=== PATIENT | male | born 1955 | race Caucasian/White ===

== ENCOUNTER → 2016-12-10 19:15 | Emergency (ER) | payer MEDICARE, OTHER ==
[2016-12-10 16:09] LABS: INTERNATIONAL NORMAL RATI 1.1 UNITS (-); PARTIAL THROMBO TIME 24.4 SEC (22.5-37.2); PROTIME (NOT ORD) 14.3 SEC (12.0-14.5)
[2016-12-10 16:14] LABS: ALBUMIN 2.8 G/DL (3.5-5.0); ALKALINE PHOSPHATASE 234 U/L (45-117); BUN (BLOOD UREA NITROGEN) 22 MG/DL (6-23); CHEST PAIN PROFILE TAT 0 Hrs 20 Mins; CHLORIDE, SERUM 102 MMOL/L (96-112); CO2 (CARBON DIOXIDE) 32 MMOL/L (24-34); CREATININE 1.11 MG/DL (0.70-1.30); DIRECT BILIRUBIN 0.3 MG/DL (0.0-0.4); GFR AFRICAN AMERICAN 83 ML/MIN (>=60); GFR NON AFRICAN AMERICAN 71 ML/MIN (>=60); GLUCOSE, SERUM 257 MG/DL (60-99); INDIRECT BILIRUBIN(NOT ORDER) 0.4 MG/DL (0.1-0.9); POTASSIUM, SERUM 4.4 MMOL/L (3.5-5.3); SGOT(AST) 57 U/L (5-40); SGPT(ALT) 101 U/L (5-65); SODIUM, SERUM 141 MMOL/L (135-148); TOTAL BILIRUBIN 0.7 MG/DL (0-1.2); TOTAL PROTEIN 5.9 G/DL (6.0-8.5); TROPONIN I <0.02 NG/ML (<0.05)
[2016-12-10 16:21] LABS: BASOPHILS 0 %; EOSINOPHILS 0 %; ER CBC TAT 0 Hrs 01 Mins; HEMATOCRIT 39.8 % (40.0-51.0); IMMATURE GRANULOCYTES 1.1 %; IMMATURE GRANULOCYTES ABSOLUTE 0.11 10/3/uL (0.0-0.11); LYMPHOCYTES 9.3 %; LYMPHOCYTES ABSOLUTE 0.96 10/3/uL (0.67-4.30); MEAN CORPUS HGB CONC 32.7 g/dL (32.0-36.0); MEAN CORPUSCULAR HEMOGLOB 29.1 pg (26.0-34.0); MEAN PLATELET VOLUME 10.8 fL (9.2-13.0); MONOCYTES 3.2 %; MONOCYTES ABSOLUTE 0.33 10/3/uL (0.21-1.20); NEUTROPHILS 86.4 %; NEUTROPHILS ABSOLUTE 8.92 10/3/uL (2.02-8.40); NUCLEATED RED BLOOD CELLS 0.2 /100WBC (0-0); PLATELET COUNT 100 10/3/uL (150-400); RBC DISTRIBUTION WIDTH 16.7 % (12.0-16.0); RED CELL COUNT 4.47 10/6/uL (4.7-6.1); WHITE BLOOD CELLS 10.3 10/3/uL (4.5-10.5)
[2016-12-10 16:23] LABS: MANUAL DIFF NO %
[~2016-12-10 19:15] MED LIST: ACET500CAP PO; ASA5GR PO; ASAB PO; ASTELIN NAS; ASTEPRO0.15 % NAS; BACDS PO; BENTYL10 PO; BRIMONIDINE0.2 % OPH; CELLCEPT5 PO; CIP2 PO; CLOTRIM/BETA TOP; COSOPT OPH; DEMA20 PO; GLUCOPHAGE1000 MG PO; GLUCOTRO10 PO; GLUCPH PO; GLUCXL10 PO; HALF81 PO; IMDUR30 PO; KDUR20 PO; L20 PO; LEVBID PO; LEVEMFLXPN SC; LEVEMIR SC; LEVSINTAB PO; LORTAB PO; MAGOX4 PO; MERREM1 GM IV; MOBIC15 MG PO; MONODOX100 MG PO; NICODERM C21 MG/241 TOP; NITROSTAT0.4 MG SL; NIZORALCRM TOP; NORCO1 TA1 PO; NORCO1 TA2 PO; NOVOLOG SC; NOVOPEN SC; NTG150 SL; P10 PO; P20 PO; PLAVIX PO; PRAVACHOL40 MG PO; PRILO PO; PYRID180 PO; PYRID60 PO; REG5 PO; SPIRO25 PO; TRESIBA FL200 UNIT/1 SC; TRESIBA SC; ULTRAM50 PO; URSO FORTE500 MG PO; VASOTEC10 PO; VASOTEC20 MG PO; VASOTEC5 PO; XALAT OPH; ZYRTEC ALLGY10 MG PO; ZYVOXPO PO
== END | disposition home or self-care (01) ==
LOC: ER 19:15
PROVIDERS: Emergency Medicine
DX: R60.0 Localized edema (principal); Z88.8 Allergy status to other drugs, medicaments and biological substances; Z79.82 Long term (current) use of aspirin; Z79.899 Other long term (current) drug therapy; Z79.4 Long term (current) use of insulin; Z79.52 Long term (current) use of systemic steroids
CPT/HCPCS: 71020; 80048; 80076; 83735; 83880; 84484; 85025; 85610; 85730; 93288; 96374; 99285

== ENCOUNTER 2017-03-31 14:46 | Inpatient (IN) | payer MEDICARE, OTHER ==
--- NOTE | ~2017-03-31 | IDS ---
Interim Discharge Summary [facility] [address] [place]. [address] NAME: GHULAM CHING : 55 STATUS : ADM IN PAT#: [id number] AGE: 61 ADM/REG DATE : 03/31/17 MR#: [id number] REPORT SERV DATE: 04/06/17 DICTATED BY: TIP BARKER DATE: 04/05/17 REPORT STATUS : Draft TRANSCRIBED BY: MODL DATE: 04/05/17 ADMISSION DATE: 03/31/2017 DISCHARGE DATE: DATE OF INTERIM SUMMARY: 04/03/2017. INTERIM DIAGNOSES: 1. Gangrenous toe, right foot second toe. 2. Peripheral arterial disease. 3. Deep vein thrombosis. 4. Diabetes type 2. 5. Non-alcoholic steatohepatitis history. 6. Myasthenia gravis history. 7. Ringworm, present on arrival. 8. Left arm hematoma. CONSULTATIONS: 1. ID. 2. Podiatry, Dr. Covington. 3. Dr. Khan, Vascular. WOUND CULTURES: Staph species. ALVINA prep, yeast positive. Additional wound culture, sparse growth of E. coli. DIAGNOSTIC DATA: Doppler ultrasound of upper extremities suspect mild arterial occlusive disease proximal subclavian artery with biphasic flow seen in the left upper extremity and distal to subclavian artery. Venous Doppler of extremities, no left upper extremity venous noted. Digit evaluation appears to be small vessel disease in the right foot with diminished waveforms in the first, third, fourth, and fifth digits of the right foot. A definite waveform is identified in the second digit. The right toe brachial index is diminished at 0.51. There also appears to be small vascular disease in the left foot with diminished waveforms in the first and fifth digits. No definitive waveforms identified in the second and third digits of the left foot. A normal waveform is seen in the fourth digit of the left foot, and left toe brachial index is mildly diminished at 0.57. Venous Doppler of extremities bilaterally, acute appearing nonocclusive deep vein thrombosis of right popliteal vein. No other thrombus identified. No left extremity venous thrombus demonstrated. Followup Doppler, no propagation of clot in the right popliteal vein. Duplex consistent with obey-rk-xmkwvswt fem-pop arterial disease on the right with monophasic flow in the distal posterior tibial artery. Distal anterior tibial artery has biphasic flow on the right with a right toe brachial index at 0.51. Additionally, findings compatible with isolated infrapopliteal disease on the left involving posterior tibial disease, which has monophasic flow and anterior tibial artery remains triphasic flow in the ankle on the left. Left toe brachial index was mildly diminished at 0.57. Isolated mild arterial occlusive disease involving deep femoral arteries bilaterally, both of which have biphasic flow. No ankle-brachial index were obtained due to the patient's DVT demonstrated on venous Doppler ultrasound performed prior to the study. Foot no osseus destruction and no acute Interim Discharge Summary [place] [id number] [facility]. [address] NAME: GHULAM CHING : 55 STATUS : ADM IN PAT#: [id number] AGE: 61 ADM/REG DATE : 03/31/17 MR#: [id number] REPORT SERV DATE: 04/06/17 DICTATED BY: TIP BARKER DATE: 04/05/17 REPORT STATUS : Draft TRANSCRIBED BY: MODL DATE: 04/05/17 abnormality. Additionally, initial radiology of right foot second toe ulcer with definitive evidence of osteomyelitis with extensive calcified atherosclerotic disease. No fractures or lytic lesions. HOSPITAL COURSE: Please see H and P for complete details. HISTORY OF PRESENT ILLNESS: Briefly, Mr. Ching is a very pleasant 61-year-old male with history of diabetes, NEVAREZ cirrhosis, and myasthenia gravis, who presents with right toe infection with progressive pain, noted to have gangrenous changes on right toe. A vascular workup showed peripheral arterial disease, DVT in right extremity. Additionally, he has had evaluation by Dr. Covington, Podiatry and Infectious Disease. Did have surgical debridement at bedside, however, due to vascular disease, Dr. Khan has been consulted as the patient will require further debridement likely intraoperatively and will need optimization prior to this. Recently, the patient was also treated for a new DVT found, however, the patient had significant amount of hematoma noted in the left arm after only 350 mL administration of heparin drip rate for DVT without bolus. Noted significant swelling in the left arm with hematoma. Since then, heparin drip has been held due to risks, benefits, and possible supratherapeutic treatment as patient within only a short amount of time had been supratherapeutic on PTT and had bleeding risk. We will defer to Dr. Khan currently for further evaluation and when to restart appropriate anticoagulation due to risk-benefit ratio. Care will be resumed by Medicine team in the a.m. ZULY/WILL Tip Barker MD / [id number] CC: Tip Barker MD
--- NOTE | ~2017-03-31 | HP ---
History And Physical [place] [address] [place]. [address] NAME: GHULAM CHING : 55 STATUS : ADM IN [facility]#: [id number] AGE: 61 ADM/REG DATE : 03/31/17 MR#: [id number] REPORT SERV DATE: 04/01/17 DICTATED BY: TIP BARKER DATE: 04/01/17 REPORT STATUS : Draft TRANSCRIBED BY: MODL DATE: 04/01/17 DATE OF ADMISSION: 03/31/2017 CHIEF COMPLAINT: Right toe infection. HISTORY OF PRESENT ILLNESS: The patient is a 61-year-old male with past medical history of sleep apnea, hypertension, hyperlipidemia, reflux, NEVAREZ cirrhosis, type 2 diabetes who presents after having right second toe erythema. The patient reports symptoms have been going on for a few days, but happened fairly suddenly, but constant, difficulty walking on the foot, and has been moderate severity with sharp-type pain radiating up the leg at times and has had redness that is also radiating. Occasional nausea, but no fevers. Has had redness, swelling at site. No shortness of breath, chest pain, diarrhea, or palpitations. Symptoms worsened with ambulating on foot, relieved by rest and elevation. Also noted black spot on the bottom of foot which he thought was a callus or a clot. Symptoms still currently present, reproducible. REVIEW OF SYSTEMS: A 10-point review of systems negative except for that noted in the HPI. PAST MEDICAL HISTORY: Myasthenia gravis, diabetes, coronary artery disease, NEVAREZ cirrhosis, IRASEMA, gastric polyps, thoracic AAA, nephrolithiasis, cholecystitis, reflux, hyperlipidemia, hypertension. SURGICAL HISTORY: Right shoulder pilonidal cyst. ALLERGIES: BETA KRUPA. SOCIAL HISTORY: No smoking. Does have chewing tobacco. From [place]. No illicits. FAMILY HISTORY: Heart disease. No blood clots. CURRENT MEDICATIONS: Aspirin, Astelin, Clotrim/beta cream, , Bentyl, Cosopt, Asher, NovoLog, Tresiba, Nizoral, Dilantin, Prilosec, Deltasone, Aldactone, Demadex, Billy. PHYSICAL EXAMINATION: VITAL SIGNS: Patient's blood pressure 114/70, temperature 98.5, pulse 84, respirations 16, and O2 saturations 97% on room air. GENERAL: No acute distress. Calm, pleasant, slightly older than stated age. EYES: No scleral icterus. EOMI. ENT: Poor dentition with smokeless tobacco in mouth. RESPIRATORY: Clear to auscultation. No wheezes. CV: Regular rate. Does have warm extremities. Cap refill less than two seconds. GI: Soft, nontender, but central obesity. : Deferred. MUSCULOSKELETAL: Right second digit with necrotic base, but pulses still palpable bilateral History And Physical [address] [address] NAME: GHULAM CHING : 55 STATUS : ADM IN [facility]#: [id number] AGE: 61 ADM/REG DATE : 03/31/17 MR#: [id number] REPORT SERV DATE: 04/01/17 DICTATED BY: TIP BARKER DATE: 04/01/17 REPORT STATUS : Draft TRANSCRIBED BY: MODKalyan DATE: 04/01/17 lower extremities. Does have, what appears to be, circular lesions possible consistent with tinea on bilateral lower extremities. SKIN: Warm, dry with erythema and tinea type changes. LYMPH: No cervical lymphadenopathy. HEME: No bleeding or bruising. NEURO: Alert and oriented. Moves all extremities. PSYCH: Appropriate mood and affect. LABS: CMP: Procalcitonin 0.27, BUN and creatinine 30 and 1.28, potassium 4.5, sodium 142, T bilirubin 1.4, AST and ALT 71 and 84, alkaline phosphatase 176. Culture still pending. WBC 12.3, H and H are 12.8 and 37.9, platelets 118. Right foot portable second toe ulcer without definite evidence of osteomyelitis. No fractures, lytic, extensive calcification. ASSESSMENT AND PLAN: 1. Gangrenous right foot ulcer, second digit. 2. Diabetes. 3. Nonalcoholic steatohepatitis. 4. Myasthenia gravis. 5. Ringworm. 6. Immunosuppression status. PLAN: 1. For gangrenous right foot toe. Vancomycin, Zosyn for ulcer type formation and diabetes. Podiatry consult. Check arterial Dopplers. ID as patient requesting, also seen by Dr. Vicente in the past. Patient additionally appears to have somewhat complex ulcerative foot and has been supportively recently treated for a ringworm in the setting of NEVAREZ cirrhosis, myasthenia gravis, immunosuppression status, and diabetic. Immunosuppression status from chronic steroid. We will ask ID evaluation. Additionally, will have Podiatry. Depending on arterial Dopplers, we will await for these results and Vascular may be required. 2. Diabetes. Sliding scale insulin Levemir. 3. NEVAREZ, elevated LFTs with mild thrombocytopenia, monitor. 4. Myasthenia gravis, on prednisone. Does not recall still being on CellCept anymore. 5. Ringworm, consult ID with comorbidities of NEVAREZ, myasthenia, diabetic foot, and chronic immunosuppression status with chronic prednisone. Hold topical cream until seen by ID. 6. Immunosuppression status secondary to chronic steroids for myasthenia. DDN/MODL Tip Barker MD / [id number]
--- NOTE | ~2017-03-31 | OP ---
Record Of Operation [facility] [address] [place]. [address] NAME: GHULAM CHING : 55 STATUS : ADM IN PAT#: [id number] AGE: 61 ADM/REG DATE : 03/31/17 MR#: [id number] REPORT SERV DATE: 04/09/17 DICTATED BY: RAPHAEL KHAN DATE: 04/08/17 REPORT STATUS : Draft TRANSCRIBED BY: MODL DATE: 04/08/17 DATE OF PROCEDURE: 04/08/2017 PREPROCEDURE DIAGNOSES: 1. Gangrene, right 2nd toe. 2. Critical limb ischemia with arterial insufficiency, Payette category 5. POSTOPERATIVE DIAGNOSIS: High-grade distal anterior tibial artery and dorsal pedal artery near occlusion. PROCEDURE PERFORMED: 1. Antegrade right SFA catheterization with angiography. 2. Selective catheterization of the right popliteal artery, anterior tibial artery, and dorsal pedal artery with direct arteriography. 3. Atherectomy of dorsal pedal artery and anterior tibial artery with a CSI 1.25 M catheter with secondary angioplasty 2 x 150 balloon. ANESTHESIA: Local/MAC. COMPLICATIONS: None. INDICATION FOR PROCEDURE: Secondary to this very pleasant 61-year-old gentleman being evaluated for critical limb ischemia, Dr. Lange performed amputation of the right 2nd toe prior to the angiogram. Please see his note for complete information. Recommendations were made to Mr. Ching prior to surgery for angiogram for reconstruction. Consent was given. DETAILS OF PROCEDURE: The patient was brought to the endovascular operating room, placed in supine position, prepped and draped in routine sterile fashion with attention to the right leg. The right SFA was then catheterized with a micropuncture needle followed by a wire and a sheath. Arteriogram demonstrated widely patent proximal, mid, and distal SFA, and proximal and distal popliteal. Catheter was advanced down the popliteal. Arteriogram demonstrated very sluggish flow into the pedal vasculature secondary to outflow obstruction. The anterior tibial artery was then catheterized with a TrailBlazer catheter and arteriogram demonstrated patent anterior tibial artery proximal and mid, but distal had evidence of obstruction and the dorsal pedal artery had evidence of a near occlusion with patent arch vessels beyond this. A wire was then passed across this. A 014 TrailBlazer catheter was advanced into the dorsal pedal artery. Arteriogram demonstrated wide patency distally. A Viper wire was then placed and maintained and then atherectomy was then performed of the anterior tibial artery and dorsal pedal artery with CSI 1.25 M catheter in standard technique. Angioplasty was then performed with a 2.0 x 150 mm balloon in the dorsal pedal artery and anterior tibial artery, proximal and mid segments. Completion imaging showed wide patency of the anterior tibial artery and dorsal pedal artery with good flow into the forefoot. At this point, wires, catheters, and sheaths were then removed. The right groin was then closed with an Angio-Seal. The patient tolerated the procedure well. Record Of Operation [facility] [address] [facility] [place]. [address] NAME: GHULAM CHING : 55 STATUS : ADM IN [facility]#: [id number] AGE: 61 ADM/REG DATE : 03/31/17 MR#: [id number] REPORT SERV DATE: 04/09/17 DICTATED BY: RAPHAEL KHAN DATE: 04/08/17 REPORT STATUS : Draft TRANSCRIBED BY: WILL DATE: 04/08/17 CL/WILL Raphael Khan M.D. / [id number] CC: MD Clinton Alfredo M.D.
--- NOTE | ~2017-03-31 | DS ---
Discharge Summary [place] [address] [place]. [address] NAME: HGULAM CHING : 55 STATUS : DIS IN PAT#: [id number] AGE: 61 ADM/REG DATE : 03/31/17 MR#: [id number] REPORT SERV DATE: 04/12/17 DICTATED BY: DATE: REPORT STATUS : Draft TRANSCRIBED BY: MODL DATE: 04/11/17 ADMISSION DATE: 03/31/2017 DISCHARGE DATE: 04/11/2017 DISCHARGE DIAGNOSES: 1. Gangrenous right second toe, status post amputation, postop day #3. 2. Peripheral artery disease. 3. Diabetes mellitus type 2. 4. Nonalcoholic steatohepatitis. 5. Myasthenia gravis. 6. Left arm hematoma. 7. Ring warm. CONSULTING PHYSICIANS: Include 1. Dr. Raphael Khan M.D. 2. Agus Lange D.P.M. 3. Tyler Vicente M.D. DISCHARGE MEDICATIONS: Include aspirin 81 mg p.o. daily, brimonidine 1 drop ophthalmic twice a day, Plavix 75 mg p.o. daily, Bentyl 10 mg p.o. four times daily, Lotrimin cream to right second toe b.i.d., Cosopt ophthalmic 1 drop b.i.d., NovoLog sliding scale level 3, NovoLog 10 units subcu before meals, Tresiba 35 units subcu at bedtime, latanoprost 1 drop ophthalmic at bedtime, nicotine 21 mg patch topical daily, Prilosec 20 mg p.o. daily, Aldactone 50 mg p.o. daily, torsemide 20 mg p.o. daily, ursodiol 500 mg p.o. b.i.d., prednisone 20 mg p.o. daily, Astelin 2 sprays b.i.d. p.r.n., [place]vue 7.5/325 mg tablet one tab p.o. q.8 hours p.r.n. for pain, Bactrim DS tablet one tab p.o. b.i.d., length to be determined by ID. PROCEDURES: Include amputation of the right second toe due to gangrene as well as right femoral stent, postop day #3, performed by Dr. Khan. For full H and P, please refer to Dr. David Lebron's dictation on 03/31/2017. Please also see Dr. Lebron's interim discharge summary on 04/06/2017. Please also see Dr. Agus Lange's record of operation as well as Dr. Raphael Khan's record of operation. HOSPITAL COURSE/PROBLEM LIST: 1. Gangrenous right second toe, status post amputation, postop day #3. The patient will follow up with Dr. Lange as an outpatient. We will also have home health care set up a case management for dressing changes and wound care as well as assistance with medication administration. 2. Peripheral artery disease. The patient is postop day #3 right femoral stent placement by Dr. Khan. The patient will follow up with Dr. Khan in 2 weeks as an outpatient. 3. Diabetes mellitus type 2. We will continue the patient's home Tresiba as well as insulin sliding scale. We will add 10 units of NovoLog prandial dosing. The patient's blood sugars have been somewhat uncontrolled due to diet. He will need to follow up with his primary care provider within one week. We will make an appointment for him Discharge Summary [address] [place]. [address] NAME: GHULAM CHING : 55 STATUS : DIS IN PAT#: [id number] AGE: 61 ADM/REG DATE : 03/31/17 MR#: [id number] REPORT SERV DATE: 04/12/17 DICTATED BY: DATE: REPORT STATUS : Draft TRANSCRIBED BY: MODL DATE: 04/11/17 for further monitoring and management of this. 4. NEVAREZ. The patient will follow up with his primary care provider for further monitoring and management. 5. Myasthenia gravis. I will continue the patient's home prednisone 20 mg p.o. daily. 6. Left arm hematoma. Apparently, this was caused by heparin drip. This is resolving. He has good color and a little bit sensation and pulses on the left side. We will continue compression sleeve post discharge, and again have him follow with his primary care provider. This discharge took greater than 30 minutes due to the medication reconciliation, patient education, and discharge planning with case management. DICTATED BY: HAM Laguna/WILL Raphael Heard NP / [id number] CC: MD Clinton Alfredo M.D.
--- NOTE | ~2017-03-31 | OP ---
Record Of Operation [facility] [address] [place]. [address] NAME: GHULAM CHING : 55 STATUS : ADM IN PAT#: [id number] AGE: 61 ADM/REG DATE : 03/31/17 MR#: [id number] REPORT SERV DATE: 04/08/17 DICTATED BY: KELSY LANGE DATE: 04/08/17 REPORT STATUS : Draft TRANSCRIBED BY: MODL DATE: 04/08/17 DATE OF PROCEDURE: 04/08/2017 SURGEON: Kelsy Lange D.P.M. PREOPERATIVE DIAGNOSIS: Gangrenous right second digit at the proximal interphalangeal joint. POSTOPERATIVE DIAGNOSIS: Gangrenous right second digit at the proximal interphalangeal joint. PROCEDURE: Disarticulation of partial amputation of the right second digit at the proximal interphalangeal joint. ANESTHESIA: Local MAC consisting of 8 mL of 0.5% Marcaine plain administered to the digit in a digital block fashion. HEMOSTASIS: No pneumatic ankle tourniquet was utilized. ESTIMATED BLOOD LOSS: Less than 3 mL. MATERIALS: 4-0 nylon. PATHOLOGICAL SPECIMENS: Distal aspect of the right second digit. DESCRIPTION OF PROCEDURE: The patient was visually and verbally identified in the holding as 61-year-old white male, Ghulam Ching. The patient was cleared for the procedure. He had no questions. He wished to proceed. Right foot was identified for surgical intervention. He was taken to the operating room, placed on the operating room table in the supine position. Local anesthesia was then utilized to consist of 8 mL of 0.5% Marcaine plain. The patient was then prepped and draped in the usual sterile fashion. Attention was then directed to the right second digit where by distal aspect of the right second digit was gangrenous with the distal phalanx exposed. With utilization of soft tissue remaining, the digit was disarticulated the proximal interphalangeal joint and was able to be closed without attention with 4-0 nylon in simple interrupted fashion. No proximal abscess was noted. Head of the proximal phalanx found to be wide and free of infection at this time. The patient was then to go revascularization by Dr. Khan, who is going to bandage the digit at the end of the case with Betadine solution, dry sterile dressing, and returned to the general medical floor. KIMBERLEE/WILL Kelsy Lange D.P.M. Record Of Operation [place] [address] [place] [address] NAME: GHULAM CHING : 55 STATUS : ADM IN PAT#: [id number] AGE: 61 ADM/REG DATE : 03/31/17 MR#: [id number] REPORT SERV DATE: 04/08/17 DICTATED BY: KELSY LANGE DATE: 04/08/17 REPORT STATUS : Draft TRANSCRIBED BY: WILL DATE: 04/08/17 / [id number] CC: MD Clinton Alfredo M.D.
[2017-03-31 14:30] LABS: BASOPHILS 0.1 %; BASOPHILS ABSOLUTE 0.01 10/3/uL (0.0-0.16); EOSINOPHILS 0.2 %; EOSINOPHILS ABSOLUTE 0.02 10/3/uL (0.0-0.53); ER CBC TAT 0 Hrs 00 Mins; HEMATOCRIT 37.9 % (40.0-51.0); HEMOGLOBIN 12.8 g/dL (13.6-17.8); IMMATURE GRANULOCYTES 0.8 %; LYMPHOCYTES 11.7 %; LYMPHOCYTES ABSOLUTE 1.44 10/3/uL (0.67-4.30); MEAN CORPUS HGB CONC 33.8 g/dL (32.0-36.0); MEAN CORPUSCULAR HEMOGLOB 28.9 pg (26.0-34.0); MEAN PLATELET VOLUME 11.2 fL (9.2-13.0); MONOCYTES 3.8 %; MONOCYTES ABSOLUTE 0.47 10/3/uL (0.21-1.20); NEUTROPHILS 83.4 %; NUCLEATED RED BLOOD CELLS 0.2 /100WBC (0-0); PLATELET COUNT 118 10/3/uL (150-400); RBC DISTRIBUTION WIDTH 15.7 % (12.0-16.0); RED CELL COUNT 4.43 10/6/uL (4.7-6.1); WHITE BLOOD CELLS 12.3 10/3/uL (4.5-10.5)
[2017-03-31 14:31] LABS: MANUAL DIFF NO %; MEAN CORPUSCULAR VOLUME 85.6 fL (80-100)
[2017-03-31 14:44] LABS: A/G RATIO 0.8 (0.7-1.9); ALBUMIN 2.7 G/DL (3.5-5.0); ALKALINE PHOSPHATASE 176 U/L (45-117); BUN (BLOOD UREA NITROGEN) 30 MG/DL (6-23); CALCIUM, SERUM 8.9 MG/DL (8.5-10.4); CHLORIDE, SERUM 105 MMOL/L (96-112); CO2 (CARBON DIOXIDE) 27 MMOL/L (24-34); CREATININE 1.28 MG/DL (0.70-1.30); GFR AFRICAN AMERICAN 70 ML/MIN (>=60); GFR NON AFRICAN AMERICAN 60 ML/MIN (>=60); GLOBULIN 3.5 G/DL (2.5-4.1); GLUCOSE, SERUM 214 MG/DL (60-99); POTASSIUM, SERUM 4.5 MMOL/L (3.5-5.3); SGOT(AST) 71 U/L (5-40); SGPT(ALT) 84 U/L (5-65); SODIUM, SERUM 140 MMOL/L (135-148); TOTAL BILIRUBIN 1.4 MG/DL (0-1.2); TOTAL PROTEIN 6.2 G/DL (6.0-8.5)
[~2017-03-31 14:46] MED LIST changes: -ASA5GR PO; -BRIMONIDINE0.2 % OPH; -CIP2 PO; -CLOTRIM/BETA TOP; -COSOPT OPH; -MONODOX100 MG PO; -NIZORALCRM TOP; -NOVOPEN SC; -PLAVIX PO; -TRESIBA FL200 UNIT/1 SC; -URSO FORTE500 MG PO; -XALAT OPH
[2017-03-31] MEDS ORDERED: PRILO PO (15:54)
[2017-03-31] MEDS ORDERED: SPIRO25 PO (15:55)
[2017-03-31] MEDS ORDERED: P20 PO (15:55)
[2017-03-31] MEDS ORDERED: URSO FORTE500 MG PO (15:56)
[2017-03-31] MEDS ORDERED: DEMA20 PO (15:56)
[2017-03-31] MEDS ORDERED: COSOPT OPH (15:57)
[2017-03-31] MEDS ORDERED: BRIMONIDINE0.2 % OPH (15:57)
[2017-03-31] MEDS ORDERED: ASA5GR PO (15:57)
[2017-03-31] MEDS ORDERED: BENTYL10 PO (15:58)
[2017-03-31] MEDS ORDERED: ASTELIN NAS (15:58)
[2017-03-31] MEDS ORDERED: NOVOLOG SC (15:58)
[2017-03-31] MEDS ORDERED: NORCO1 TA2 PO (15:58)
[2017-03-31] MEDS ORDERED: CLOTRIM/BETA TOP (15:59)
[2017-03-31] MEDS ORDERED: TRESIBA FL200 UNIT/1 SC (15:59)
[2017-03-31] MEDS ORDERED: XALAT OPH (15:59)
[2017-03-31] MEDS ORDERED: NIZORALCRM TOP (16:00)
[2017-03-31 22:43] LABS: PROCALCITONIN 0.27 ng/mL (<0.5)
[2017-04-01 07:04] LABS: BASOPHILS 0.1 %; BASOPHILS ABSOLUTE 0.01 10/3/uL (0.0-0.16); EOSINOPHILS 0.5 %; EOSINOPHILS ABSOLUTE 0.04 10/3/uL (0.0-0.53); HEMATOCRIT 37.9 % (40.0-51.0); HEMOGLOBIN 12.7 g/dL (13.6-17.8); IMMATURE GRANULOCYTES 0.4 %; IMMATURE GRANULOCYTES ABSOLUTE 0.03 10/3/uL (0.0-0.11); LYMPHOCYTES 22.6 %; LYMPHOCYTES ABSOLUTE 1.92 10/3/uL (0.67-4.30); MANUAL DIFF NO %; MEAN CORPUS HGB CONC 33.5 g/dL (32.0-36.0); MEAN CORPUSCULAR HEMOGLOB 28.9 pg (26.0-34.0); MEAN CORPUSCULAR VOLUME 86.3 fL (80-100); MEAN PLATELET VOLUME 10.9 fL (9.2-13.0); MONOCYTES 4.6 %; MONOCYTES ABSOLUTE 0.39 10/3/uL (0.21-1.20); NEUTROPHILS 71.8 %; NEUTROPHILS ABSOLUTE 6.12 10/3/uL (2.02-8.40); PLATELET COUNT 86 10/3/uL (150-400); RED CELL COUNT 4.39 10/6/uL (4.7-6.1); WHITE BLOOD CELLS 8.5 10/3/uL (4.5-10.5)
[2017-04-01 07:12] LABS: BUN (BLOOD UREA NITROGEN) 32 MG/DL (6-23); CALCIUM, SERUM 8.7 MG/DL (8.5-10.4); CHLORIDE, SERUM 105 MMOL/L (96-112); CO2 (CARBON DIOXIDE) 32 MMOL/L (24-34); CREATININE 1.34 MG/DL (0.70-1.30); GFR AFRICAN AMERICAN 66 ML/MIN (>=60); GFR NON AFRICAN AMERICAN 57 ML/MIN (>=60); GLUCOSE, SERUM 206 MG/DL (60-99); SODIUM, SERUM 139 MMOL/L (135-148)
[2017-04-01 20:50] LABS: BASOPHILS 0.1 %; BASOPHILS ABSOLUTE 0.01 10/3/uL (0.0-0.16); EOSINOPHILS 0.1 %; EOSINOPHILS ABSOLUTE 0.01 10/3/uL (0.0-0.53); HEMOGLOBIN 14.7 g/dL (13.6-17.8); IMMATURE GRANULOCYTES 0.5 %; IMMATURE GRANULOCYTES ABSOLUTE 0.05 10/3/uL (0.0-0.11); LYMPHOCYTES 12.4 %; LYMPHOCYTES ABSOLUTE 1.31 10/3/uL (0.67-4.30); MEAN CORPUSCULAR HEMOGLOB 29.1 pg (26.0-34.0); MEAN CORPUSCULAR VOLUME 87.9 fL (80-100); MEAN PLATELET VOLUME 11.8 fL (9.2-13.0); MONOCYTES 3.2 %; MONOCYTES ABSOLUTE 0.34 10/3/uL (0.21-1.20); NEUTROPHILS 83.7 %; NEUTROPHILS ABSOLUTE 8.85 10/3/uL (2.02-8.40); PLATELET COUNT 109 10/3/uL (150-400); RED CELL COUNT 5.06 10/6/uL (4.7-6.1); WHITE BLOOD CELLS 10.6 10/3/uL (4.5-10.5)
[2017-04-01 20:51] LABS: HEMATOCRIT 44.5 % (40.0-51.0); MANUAL DIFF NO %
[2017-04-01 20:56] LABS: INTERNATIONAL NORMAL RATI 1.1 UNITS (-); PARTIAL THROMBO TIME 25.9 SEC (22.5-37.2); PROTIME (NOT ORD) 13.8 SEC (12.0-14.5)
[2017-04-02 05:10] LABS: BASOPHILS 0.1 %; BASOPHILS ABSOLUTE 0.01 10/3/uL (0.0-0.16); EOSINOPHILS 0.2 %; EOSINOPHILS ABSOLUTE 0.02 10/3/uL (0.0-0.53); HEMATOCRIT 41.9 % (40.0-51.0); HEMOGLOBIN 13.9 g/dL (13.6-17.8); IMMATURE GRANULOCYTES 0.5 %; IMMATURE GRANULOCYTES ABSOLUTE 0.05 10/3/uL (0.0-0.11); LYMPHOCYTES 15.5 %; LYMPHOCYTES ABSOLUTE 1.55 10/3/uL (0.67-4.30); MEAN CORPUS HGB CONC 33.2 g/dL (32.0-36.0); MEAN CORPUSCULAR VOLUME 87.5 fL (80-100); MEAN PLATELET VOLUME 11.2 fL (9.2-13.0); MONOCYTES 4.7 %; MONOCYTES ABSOLUTE 0.47 10/3/uL (0.21-1.20); NEUTROPHILS ABSOLUTE 7.87 10/3/uL (2.02-8.40); PLATELET COUNT 93 10/3/uL (150-400); RBC DISTRIBUTION WIDTH 15.6 % (12.0-16.0); RED CELL COUNT 4.79 10/6/uL (4.7-6.1)
[2017-04-02 05:13] LABS: MANUAL DIFF NO %
[2017-04-02 05:25] LABS: A/G RATIO 0.8 (0.7-1.9); ALBUMIN 2.8 G/DL (3.5-5.0); ALKALINE PHOSPHATASE 167 U/L (45-117); BUN (BLOOD UREA NITROGEN) 34 MG/DL (6-23); CALCIUM, SERUM 9.4 MG/DL (8.5-10.4); CHLORIDE, SERUM 100 MMOL/L (96-112); CO2 (CARBON DIOXIDE) 30 MMOL/L (24-34); CREATININE 1.37 MG/DL (0.70-1.30); GFR AFRICAN AMERICAN 64 ML/MIN (>=60); GFR NON AFRICAN AMERICAN 55 ML/MIN (>=60); GLOBULIN 3.6 G/DL (2.5-4.1); POTASSIUM, SERUM 4.3 MMOL/L (3.5-5.3); SGOT(AST) 40 U/L (5-40); SGPT(ALT) 67 U/L (5-65); SODIUM, SERUM 139 MMOL/L (135-148); TOTAL PROTEIN 6.4 G/DL (6.0-8.5)
[2017-04-02 05:26] LABS: GLUCOSE, SERUM 282 MG/DL (60-99); TOTAL BILIRUBIN 0.7 MG/DL (0-1.2)
[2017-04-02 07:02] LABS: INTERNATIONAL NORMAL RATI 1.2 UNITS (-); PROTIME (NOT ORD) 15.2 SEC (12.0-14.5)
[2017-04-02 07:20] LABS: BUN (BLOOD UREA NITROGEN) 34 MG/DL (6-23); CALCIUM, SERUM 9.2 MG/DL (8.5-10.4); CHLORIDE, SERUM 100 MMOL/L (96-112); CO2 (CARBON DIOXIDE) 33 MMOL/L (24-34); CREATININE 1.28 MG/DL (0.70-1.30); GFR AFRICAN AMERICAN 70 ML/MIN (>=60); GFR NON AFRICAN AMERICAN 60 ML/MIN (>=60); GLUCOSE, SERUM 247 MG/DL (60-99); POTASSIUM, SERUM 4.2 MMOL/L (3.5-5.3); SODIUM, SERUM 137 MMOL/L (135-148)
[2017-04-03 08:18] LABS: BASOPHILS 0.1 %; BASOPHILS ABSOLUTE 0.02 10/3/uL (0.0-0.16); EOSINOPHILS 0.2 %; EOSINOPHILS ABSOLUTE 0.03 10/3/uL (0.0-0.53); HEMATOCRIT 43.9 % (40.0-51.0); HEMOGLOBIN 14.4 g/dL (13.6-17.8); IMMATURE GRANULOCYTES ABSOLUTE 0.16 10/3/uL (0.0-0.11); LYMPHOCYTES 22.3 %; LYMPHOCYTES ABSOLUTE 3.66 10/3/uL (0.67-4.30); MEAN CORPUS HGB CONC 32.8 g/dL (32.0-36.0); MEAN CORPUSCULAR HEMOGLOB 29.3 pg (26.0-34.0); MEAN CORPUSCULAR VOLUME 89.2 fL (80-100); MEAN PLATELET VOLUME 11.3 fL (9.2-13.0); MONOCYTES 4.9 %; MONOCYTES ABSOLUTE 0.81 10/3/uL (0.21-1.20); NEUTROPHILS 71.5 %; NEUTROPHILS ABSOLUTE 11.76 10/3/uL (2.02-8.40); RBC DISTRIBUTION WIDTH 15.8 % (12.0-16.0); RED CELL COUNT 4.92 10/6/uL (4.7-6.1)
[2017-04-03 08:22] LABS: MANUAL DIFF NO %; PLATELET COUNT 131 10/3/uL (150-400); WHITE BLOOD CELLS 16.4 10/3/uL (4.5-10.5)
[2017-04-03 08:25] LABS: PARTIAL THROMBO TIME 24.3 SEC (22.5-37.2)
[2017-04-03 08:27] LABS: PROTIME (NOT ORD) 12.8 SEC (12.0-14.5)
[2017-04-03 08:35] LABS: BUN (BLOOD UREA NITROGEN) 31 MG/DL (6-23); CALCIUM, SERUM 9.2 MG/DL (8.5-10.4); CHLORIDE, SERUM 102 MMOL/L (96-112); CO2 (CARBON DIOXIDE) 29 MMOL/L (24-34); CREATININE 1.23 MG/DL (0.70-1.30); GFR AFRICAN AMERICAN 73 ML/MIN (>=60); GFR NON AFRICAN AMERICAN 63 ML/MIN (>=60); POTASSIUM, SERUM 3.9 MMOL/L (3.5-5.3); SODIUM, SERUM 134 MMOL/L (135-148); VANCOMYCIN TROUGH 18.1 MCG/ML (10.0-20.0)
[2017-04-03 08:36] LABS: GLUCOSE, SERUM 158 MG/DL (60-99)
[2017-04-04 07:26] LABS: HEMATOCRIT 40.7 % (40.0-51.0); HEMOGLOBIN 13.4 g/dL (13.6-17.8); MANUAL DIFF YES %; MEAN CORPUS HGB CONC 32.9 g/dL (32.0-36.0); MEAN CORPUSCULAR HEMOGLOB 29.2 pg (26.0-34.0); MEAN CORPUSCULAR VOLUME 88.7 fL (80-100); MEAN PLATELET VOLUME 11.2 fL (9.2-13.0); PLATELET COUNT 123 10/3/uL (150-400); RBC DISTRIBUTION WIDTH 15.7 % (12.0-16.0); RED CELL COUNT 4.59 10/6/uL (4.7-6.1); WHITE BLOOD CELLS 12.6 10/3/uL (4.5-10.5)
[2017-04-04 07:37] LABS: BUN (BLOOD UREA NITROGEN) 34 MG/DL (6-23); CALCIUM, SERUM 8.8 MG/DL (8.5-10.4); CHLORIDE, SERUM 103 MMOL/L (96-112); CO2 (CARBON DIOXIDE) 33 MMOL/L (24-34); CREATININE 1.13 MG/DL (0.70-1.30); GFR AFRICAN AMERICAN 81 ML/MIN (>=60); GFR NON AFRICAN AMERICAN 70 ML/MIN (>=60); GLUCOSE, SERUM 101 MG/DL (60-99); SODIUM, SERUM 139 MMOL/L (135-148)
[2017-04-04 07:58] LABS: BAND NEUTROPHILS 2 %; EOSINOPHILS 1 %; EOSINOPHILS ABSOLUTE (CALC) 0.13 10/3/uL (0.0-0.53); LYMPHOCYTES 20 %; LYMPHOCYTES ABSOLUTE (CALC) 2.52 10/3/uL (0.67-4.30); MONOCYTES 4 %; NEUTROPHILS ABSOLUTE (CALC) 9.45 10/3/uL (2.02-8.40); PLATELET ESTIMATE SLT DEC (ADEQUATE); RBC MORPHOLOGY NORM (NORMAL); SEGMENTED NEUTROPHIL (0) 73 %; TOTAL NUCLEATED CELLS 100
[2017-04-05 05:50] LABS: BASOPHILS 0.1 %; BASOPHILS ABSOLUTE 0.01 10/3/uL (0.0-0.16); EOSINOPHILS 0.3 %; EOSINOPHILS ABSOLUTE 0.03 10/3/uL (0.0-0.53); HEMATOCRIT 39.3 % (40.0-51.0); IMMATURE GRANULOCYTES 1.3 %; IMMATURE GRANULOCYTES ABSOLUTE 0.12 10/3/uL (0.0-0.11); LYMPHOCYTES ABSOLUTE 2.35 10/3/uL (0.67-4.30); MEAN CORPUS HGB CONC 33.1 g/dL (32.0-36.0); MEAN CORPUSCULAR HEMOGLOB 29.1 pg (26.0-34.0); MEAN CORPUSCULAR VOLUME 87.9 fL (80-100); MEAN PLATELET VOLUME 11.4 fL (9.2-13.0); MONOCYTES 6.2 %; MONOCYTES ABSOLUTE 0.58 10/3/uL (0.21-1.20); NEUTROPHILS 67.1 %; NEUTROPHILS ABSOLUTE 6.32 10/3/uL (2.02-8.40); PLATELET COUNT 103 10/3/uL (150-400); RBC DISTRIBUTION WIDTH 15.6 % (12.0-16.0); RED CELL COUNT 4.47 10/6/uL (4.7-6.1); WHITE BLOOD CELLS 9.4 10/3/uL (4.5-10.5)
[2017-04-05 05:51] LABS: MANUAL DIFF NO %
[2017-04-05 05:53] LABS: INTERNATIONAL NORMAL RATI 1.1 UNITS (-); PARTIAL THROMBO TIME 24.7 SEC (22.5-37.2); PROTIME (NOT ORD) 14.1 SEC (12.0-14.5)
[2017-04-05 06:02] LABS: A/G RATIO 0.8 (0.7-1.9); ALBUMIN 2.6 G/DL (3.5-5.0); ALKALINE PHOSPHATASE 167 U/L (45-117); BUN (BLOOD UREA NITROGEN) 32 MG/DL (6-23); CALCIUM, SERUM 8.7 MG/DL (8.5-10.4); CHLORIDE, SERUM 106 MMOL/L (96-112); CO2 (CARBON DIOXIDE) 31 MMOL/L (24-34); CREATININE 1.19 MG/DL (0.70-1.30); GFR AFRICAN AMERICAN 76 ML/MIN (>=60); GFR NON AFRICAN AMERICAN 66 ML/MIN (>=60); GLOBULIN 3.1 G/DL (2.5-4.1); SGOT(AST) 51 U/L (5-40); SGPT(ALT) 65 U/L (5-65); SODIUM, SERUM 141 MMOL/L (135-148); TOTAL BILIRUBIN 0.6 MG/DL (0-1.2); TOTAL PROTEIN 5.7 G/DL (6.0-8.5)
[2017-04-05 06:03] LABS: GLUCOSE, SERUM 155 MG/DL (60-99)
[2017-04-06 05:38] LABS: BASOPHILS 0.1 %; BASOPHILS ABSOLUTE 0.01 10/3/uL (0.0-0.16); EOSINOPHILS 0.4 %; EOSINOPHILS ABSOLUTE 0.03 10/3/uL (0.0-0.53); HEMATOCRIT 38.2 % (40.0-51.0); HEMOGLOBIN 12.4 g/dL (13.6-17.8); IMMATURE GRANULOCYTES 0.9 %; IMMATURE GRANULOCYTES ABSOLUTE 0.07 10/3/uL (0.0-0.11); LYMPHOCYTES ABSOLUTE 1.75 10/3/uL (0.67-4.30); MEAN CORPUS HGB CONC 32.5 g/dL (32.0-36.0); MEAN CORPUSCULAR HEMOGLOB 28.6 pg (26.0-34.0); MEAN CORPUSCULAR VOLUME 88.2 fL (80-100); MEAN PLATELET VOLUME 10.9 fL (9.2-13.0); MONOCYTES ABSOLUTE 0.32 10/3/uL (0.21-1.20); NEUTROPHILS 72.6 %; NEUTROPHILS ABSOLUTE 5.78 10/3/uL (2.02-8.40); PLATELET COUNT 95 10/3/uL (150-400); RBC DISTRIBUTION WIDTH 15.7 % (12.0-16.0); RED CELL COUNT 4.33 10/6/uL (4.7-6.1)
[2017-04-06 05:39] LABS: MANUAL DIFF NO %
[2017-04-06 05:59] LABS: A/G RATIO 0.8 (0.7-1.9); ALBUMIN 2.6 G/DL (3.5-5.0); BUN (BLOOD UREA NITROGEN) 29 MG/DL (6-23); CHLORIDE, SERUM 104 MMOL/L (96-112); CO2 (CARBON DIOXIDE) 31 MMOL/L (24-34); CREATININE 1.26 MG/DL (0.70-1.30); GFR AFRICAN AMERICAN 71 ML/MIN (>=60); GFR NON AFRICAN AMERICAN 61 ML/MIN (>=60); GLOBULIN 3.1 G/DL (2.5-4.1); PREALBUMIN 17.5 MG/DL (17.0-43.0); SGPT(ALT) 64 U/L (5-65); SODIUM, SERUM 142 MMOL/L (135-148); TOTAL BILIRUBIN 0.8 MG/DL (0-1.2); TOTAL PROTEIN 5.7 G/DL (6.0-8.5)
[2017-04-06 06:02] LABS: ALKALINE PHOSPHATASE 140 U/L (45-117); CALCIUM, SERUM 10.1 MG/DL (8.5-10.4); GLUCOSE, SERUM 202 MG/DL (60-99); POTASSIUM, SERUM 4.5 MMOL/L (3.5-5.3); SGOT(AST) 63 U/L (5-40)
[2017-04-07 06:36] LABS: BASOPHILS 0.1 %; BASOPHILS ABSOLUTE 0.01 10/3/uL (0.0-0.16); EOSINOPHILS 0.3 %; EOSINOPHILS ABSOLUTE 0.03 10/3/uL (0.0-0.53); HEMATOCRIT 38.4 % (40.0-51.0); HEMOGLOBIN 12.9 g/dL (13.6-17.8); IMMATURE GRANULOCYTES 1.1 %; IMMATURE GRANULOCYTES ABSOLUTE 0.11 10/3/uL (0.0-0.11); LYMPHOCYTES 23.3 %; LYMPHOCYTES ABSOLUTE 2.25 10/3/uL (0.67-4.30); MEAN CORPUS HGB CONC 33.6 g/dL (32.0-36.0); MEAN CORPUSCULAR HEMOGLOB 29.4 pg (26.0-34.0); MEAN CORPUSCULAR VOLUME 87.5 fL (80-100); MONOCYTES 5.9 %; MONOCYTES ABSOLUTE 0.57 10/3/uL (0.21-1.20); NEUTROPHILS 69.3 %; NEUTROPHILS ABSOLUTE 6.68 10/3/uL (2.02-8.40); NUCLEATED RED BLOOD CELLS 0.3 /100WBC (0-0); PLATELET COUNT 99 10/3/uL (150-400); RBC DISTRIBUTION WIDTH 15.5 % (12.0-16.0); RED CELL COUNT 4.39 10/6/uL (4.7-6.1); WHITE BLOOD CELLS 9.7 10/3/uL (4.5-10.5)
[2017-04-07 06:39] LABS: MANUAL DIFF NO %
[2017-04-08 11:18] LABS: BUN (BLOOD UREA NITROGEN) 33 MG/DL (6-23); CHLORIDE, SERUM 106 MMOL/L (96-112); CO2 (CARBON DIOXIDE) 34 MMOL/L (24-34); CREATININE 1.19 MG/DL (0.70-1.30); GFR AFRICAN AMERICAN 76 ML/MIN (>=60); GFR NON AFRICAN AMERICAN 66 ML/MIN (>=60); GLUCOSE, SERUM 128 MG/DL (60-99); SODIUM, SERUM 143 MMOL/L (135-148)
[2017-04-09 07:43] LABS: BASOPHILS 0.1 %; BASOPHILS ABSOLUTE 0.01 10/3/uL (0.0-0.16); EOSINOPHILS 0.5 %; EOSINOPHILS ABSOLUTE 0.04 10/3/uL (0.0-0.53); HEMATOCRIT 36.1 % (40.0-51.0); HEMOGLOBIN 11.9 g/dL (13.6-17.8); IMMATURE GRANULOCYTES ABSOLUTE 0.08 10/3/uL (0.0-0.11); LYMPHOCYTES ABSOLUTE 2.09 10/3/uL (0.67-4.30); MEAN CORPUSCULAR HEMOGLOB 28.6 pg (26.0-34.0); MEAN CORPUSCULAR VOLUME 86.8 fL (80-100); MEAN PLATELET VOLUME 11.1 fL (9.2-13.0); MONOCYTES 4.5 %; MONOCYTES ABSOLUTE 0.35 10/3/uL (0.21-1.20); NEUTROPHILS 66.9 %; NEUTROPHILS ABSOLUTE 5.18 10/3/uL (2.02-8.40); PLATELET COUNT 89 10/3/uL (150-400); RED CELL COUNT 4.16 10/6/uL (4.7-6.1); WHITE BLOOD CELLS 7.8 10/3/uL (4.5-10.5)
[2017-04-09 07:44] LABS: MANUAL DIFF NO %
[2017-04-09 07:57] LABS: BUN (BLOOD UREA NITROGEN) 26 MG/DL (6-23); CALCIUM, SERUM 8.8 MG/DL (8.5-10.4); CHLORIDE, SERUM 108 MMOL/L (96-112); CO2 (CARBON DIOXIDE) 31 MMOL/L (24-34); CREATININE 1.16 MG/DL (0.70-1.30); GFR AFRICAN AMERICAN 78 ML/MIN (>=60); GFR NON AFRICAN AMERICAN 68 ML/MIN (>=60); GLUCOSE, SERUM 203 MG/DL (60-99); POTASSIUM, SERUM 4.7 MMOL/L (3.5-5.3); SODIUM, SERUM 143 MMOL/L (135-148)
[2017-04-10 08:02] LABS: BASOPHILS 0.1 %; BASOPHILS ABSOLUTE 0.01 10/3/uL (0.0-0.16); EOSINOPHILS 0.4 %; EOSINOPHILS ABSOLUTE 0.04 10/3/uL (0.0-0.53); HEMATOCRIT 39.7 % (40.0-51.0); IMMATURE GRANULOCYTES ABSOLUTE 0.11 10/3/uL (0.0-0.11); LYMPHOCYTES 22.9 %; LYMPHOCYTES ABSOLUTE 2.49 10/3/uL (0.67-4.30); MEAN CORPUS HGB CONC 32.7 g/dL (32.0-36.0); MEAN CORPUSCULAR HEMOGLOB 28.8 pg (26.0-34.0); MEAN CORPUSCULAR VOLUME 87.8 fL (80-100); MEAN PLATELET VOLUME 10.2 fL (9.2-13.0); MONOCYTES ABSOLUTE 0.54 10/3/uL (0.21-1.20); NEUTROPHILS 70.6 %; NEUTROPHILS ABSOLUTE 7.66 10/3/uL (2.02-8.40); PLATELET COUNT 99 10/3/uL (150-400); RBC DISTRIBUTION WIDTH 15.5 % (12.0-16.0); RED CELL COUNT 4.52 10/6/uL (4.7-6.1); WHITE BLOOD CELLS 10.9 10/3/uL (4.5-10.5)
[2017-04-10 08:04] LABS: MANUAL DIFF NO %
[2017-04-10 08:17] LABS: BUN (BLOOD UREA NITROGEN) 27 MG/DL (6-23); CALCIUM, SERUM 8.8 MG/DL (8.5-10.4); CHLORIDE, SERUM 109 MMOL/L (96-112); CO2 (CARBON DIOXIDE) 29 MMOL/L (24-34); CREATININE 1.15 MG/DL (0.70-1.30); GFR AFRICAN AMERICAN 79 ML/MIN (>=60); GFR NON AFRICAN AMERICAN 68 ML/MIN (>=60); GLUCOSE, SERUM 129 MG/DL (60-99); POTASSIUM, SERUM 4.1 MMOL/L (3.5-5.3); SODIUM, SERUM 143 MMOL/L (135-148)
[2017-04-11] MEDS ORDERED: PLAVIX PO (10:53)
[2017-04-11] MEDS ORDERED: NOVOPEN SC (10:54)
[2017-04-11] MEDS ORDERED: BACDS PO (10:54)
[2017-05-10] MEDS ORDERED: CIP2 PO (17:42)
[2017-05-10] MEDS ORDERED: MONODOX100 MG PO (17:42)
[2017-05-10] MEDS ORDERED: PRAVACHOL40 MG PO (17:44)
[2017-05-10] MEDS ORDERED: REG5 PO (17:46)
== END 2017-04-11 15:00 | disposition home health service (06) | DRG 271 ==
LOC: ER 14:46 → 5SO 17:59
PROVIDERS: Hospitalist; Nurse Practitioner; Nurse Practitioner Acute Care; Physician Assistant; Podiatrist; Specialist; Student in an Organized Health Care Education/Training Program
PROC: 04CV3ZZ Extirpation of Matter from Right Foot Artery, Percutaneous Approach (ICD-10-PCS; 2017-04-08)
PROC: 0Y6R0Z1 Detachment at Right 2nd Toe, High, Open Approach (ICD-10-PCS; principal; 2017-04-08 15:45)
PROC: 04CP3ZZ Extirpation of Matter from Right Anterior Tibial Artery, Percutaneous Approach (ICD-10-PCS; 2017-04-08 15:45)
PROC: 047P3ZZ Dilation of Right Anterior Tibial Artery, Percutaneous Approach (ICD-10-PCS; 2017-04-08 15:45)
PROC: 047V3ZZ Dilation of Right Foot Artery, Percutaneous Approach (ICD-10-PCS; 2017-04-08 15:45)
DX: E11.52 Type 2 diabetes mellitus with diabetic peripheral angiopathy with gangrene (principal); T82.838A Hemorrhage due to vascular prosthetic devices, implants and grafts, initial encounter; I82.431 Acute embolism and thrombosis of right popliteal vein; K75.81 Nonalcoholic steatohepatitis (NASH); G70.00 Myasthenia gravis without (acute) exacerbation; I70.201 Unspecified atherosclerosis of native arteries of extremities, right leg; I10 Essential (primary) hypertension; E78.5 Hyperlipidemia, unspecified; G47.33 Obstructive sleep apnea (adult) (pediatric); K21.9 Gastro-esophageal reflux disease without esophagitis; B35.9 Dermatophytosis, unspecified; T45.515A Adverse effect of anticoagulants, initial encounter; Y92.230 Patient room in hospital as the place of occurrence of the external cause; Z87.442 Personal history of urinary calculi; Z88.8 Allergy status to other drugs, medicaments and biological substances; Z72.0 Tobacco use; Z82.49 Family history of ischemic heart disease and other diseases of the circulatory system; Z79.82 Long term (current) use of aspirin; Z79.02 Long term (current) use of antithrombotics/antiplatelets; Z79.4 Long term (current) use of insulin; Z79.899 Other long term (current) drug therapy; Z79.52 Long term (current) use of systemic steroids
CPT/HCPCS: 28825; 37229; 73630-50; 73630-RT; 75710; 80048; 80053; 80202; 82947; 82962; 83735; 84134; 84145; 85025; 85610; 85730; 87040; 87070; 87075; 87077; 87101; 87186; 87205; 87210; 88305; 88311; 93005; 93922; 93925; 93931; 93970; 93971; 96365; 97162-GP; 99284; A9270-GY; C1725; C1760; C1769; C1887; C1894; G8978-CJ-GP; G8979-CI-GP; J2250; J2370; J2405; J2543; J3010; J3370; Q9967